=== PATIENT | female | born 1975 | race Caucasian/White ===

== ENCOUNTER 2016-10-22 07:02 | Day surgery (SDC) | payer OTHER ==
[~2016-10-22] VITALS: Ht 165.1 cm; Wt 103.0 kg
[2016-10-22 07:35] VITALS: Ht 165.1 cm; Wt 103.0 kg
[2016-10-22] MEDS ORDERED: PROPOFOL 40 ML ONE (08:59)
[2016-10-22] MEDS ORDERED: LIDOCAINE 2% (SDV) 5 ML INJ ONE (08:59)
[2016-10-22 09:07] VITALS: BP 108/56; PULSE 84; RESP 18
[2016-10-22 09:55] VITALS: BP 102/62; PULSE 70; RESP 19
--- NOTE | 2016-10-22 11:13 | GILP ---
DATE OF PROCEDURE: 10/22/2016 NAME OF PROCEDURE: Esophagogastroduodenoscopy and biopsy. SURGEON: Fawad Laguna MD PREOPERATIVE DIAGNOSES: Chronic heartburn. POSTOPERATIVE DIAGNOSES 1. Reflux esophagitis with erosions at the lower end. 2. Gastritis with erosions. 3. Gastric mucosal biopsies were taken for Helicobacter pylori test. INDICATION FOR THE PROCEDURE: Ms. Radha Taylor is a 41-year-old female patient who had chronic hea rtburn, not responding to therapy. The patient was scheduled for endoscopic examination for further evaluation. The procedure and possible complications were well explained to the patient, she understood and cons ented to the procedure. DESCRIPTION OF PROCEDURE: Under the influence of anesthesia, the gastroscope was carefully introduc ed into the esophagus, and under direct vision it was advanced to the stomach and through the pyloru s into the duodenal bulb and descending duodenum. FINDINGS: ESOPHAGUS: The patient had reflux esophagitis with erosions at the lower end. STOMACH: She had gastritis. Gastric mucosal biopsies were taken for H. pylori test. DUODENUM: Normal. She tolerated the procedure very well and there was no complication from the procedure. At the end of the procedure she was awake, with stable vital signs, and she was discharged home to the care of her family. IMPRESSION: Please see postoperative diagnoses. PLAN: 1. Pantoprazole 40 mg p.o. q.a.m. 2. Pepcid 40 mg p.o. at bedtime. 3. Await H. pylori test report. Dictated By: FAWAD DARDEN/VIVIAN Conf#: [id number] DID#: [id number]
== END 2016-10-22 15:38 | disposition home or self-care (01) ==
LOC: GIL 07:02
PROVIDERS: ATTEND Internal Medicine Gastroenterology
DX: K21.0 Gastro-esophageal reflux disease with esophagitis (principal); K29.70 Gastritis, unspecified, without bleeding; E66.01 Morbid (severe) obesity due to excess calories; Z68.37 Body mass index [BMI] 37.0-37.9, adult
CPT/HCPCS: 43239; 87081; Z7610